=== PATIENT | female | born 1980 | race Caucasian/White ===

== ENCOUNTER 2017-04-09 18:45 | Emergency (ER) | payer OTHER ==
[~2017-04-09] VITALS: Ht 175.3 cm; Wt 110.4 kg
[~2017-04-09 18:45] MED LIST: ANAPROX DS550 M1 PO; BACTRIM,SEPT1 TABLET PO; BUPROPION XL150 MG PO; BUSPAR10 MG PO; BUSPIRONE HCL15 MG PO; HYDROCODON-ACE1 EAC7 PO; MOTRIN600 MG PO; PERCOCET 5/31 TABLET PO; SPRINTEC1 EACH PO; TOPIRAMATE25 MG PO; ZOFRAN ODT4 MG PO
[2017-04-09 19:37] LABS: HEMATOCRIT 39.2 % (36.0-46.0); MCH 28.8 PG (29.0-34.0); MCHC 32.9 G/DL (30.0-36.0); MCV 87.5 FL (83-99); MEAN PLAT.VOLUME 9.2 uM^3 (9.5-12.4); PLATELET COUNT 184 K/uL (156-360); RBC DIS.WIDTH-CV 12.6 % (11.8-14.6); RBC DIS.WIDTH-SD 40.6 % (39-53); RED BLOOD COUNT 4.48 M/uL (3.80-5.20); WHITE BLOOD COUNT 10.1 K/uL (4.1-10.2)
[2017-04-09 19:45] LABS: CHLORIDE 107 mEq/L (99-109); POTASSIUM 3.5 mEq/L (3.7-5.4); SODIUM 140 mEq/L (136-147)
[2017-04-09 19:47] LABS: GLUCOSE 143 mg/dL (70-99)
[2017-04-09 19:48] LABS: ANION GAP 12 MEQ/L (2-14)
[2017-04-09 19:51] LABS: GFR ESTIMATE (CALCULATED) > 59 mL/min/; UREA NITROGEN (BUN) 9 mg/dL (9-23)
[2017-04-09 20:34] LABS: TOTAL BILIRUBIN 0.6 mg/dL (0.0-1.0)
[2017-04-09 20:35] LABS: ALKALINE PHOSPHATASE 77 IU/L (3-129)
[2017-04-09 21:20] LABS: ADD MIUA? YES; BILIRUBIN NEGATIVE; BLOOD NEGATIVE; COLOR AMBER ((YELLOW)); GLUCOSE (STRIP) 50; KETONES NEGATIVE; LEUKOCYTES NEGATIVE; NITRITE NEGATIVE; PROTEIN (STRIP) 30; SPECIFIC GRAVITY 1.027 (1.000-1.030); UROBILINOGEN 0.2 MG/DL (0.2-1.0)
[2017-04-09 21:22] LABS: BACTERIA RARE /HPF; EPITHELIAL CELLS 1+ /HPF; MUCUS TRACE /LPF; RED BLOOD CELLS 0-5 /HPF (0-5); WHITE BLOOD CELLS 0-5 /HPF (0-5)
[2017-04-09] MEDS ORDERED: MIRALAX17 GM PO (22:48)
[2017-04-09 23:00] VITALS: BP 127/69
== END 2017-04-09 23:00 | disposition home or self-care (01) ==
LOC: EME 18:45
PROVIDERS: Physician Assistant
DX: K59.00 Constipation, unspecified (principal); R10.31 Right lower quadrant pain; K21.9 Gastro-esophageal reflux disease without esophagitis
CPT/HCPCS: 71020; 74176; 80048; 80053; 81003; 85027; 99281; 99284; J1885